=== PATIENT | female | born 1955 | race Caucasian/White ===

== ENCOUNTER 2021-10-21 09:59 | Day surgery (SDC) | payer OTHER ==
[~2021-10-21] VITALS: Ht 162.6 cm; Wt 72.6 kg
[~2021-10-21 09:59] MED LIST: ACET325 PO; IBUP600 PO; MULVITA PO; TURMERIC500 M2 PO
--- NOTE | 2021-10-21 10:46 | NUR ---
Ambulatory in Day Surgery. History, Chart, Medications and Allergies reviewed before start of procedure. Patient States Post-Procedure ride home has been arranged. Patient states colon prep results clear.
--- NOTE | 2021-10-21 12:04 | NUR ---
10/21/21 1204 Lynnette Syed HISTORY, CHART, MEDICATIONS AND ALLERGIES REVIEWED BEFORE START OF PROCEDURE. PATIENT CONFIRMS NPO STATUS AND AGREES WITH SCHEDULED PROCEDURE. 3-LEAD EKG REVIEWED WITH PHYSICIAN PRIOR TO START OF PROCEDURE. MONITOR INTACT WITH CONTINUOUS PULSE OXIMETRY,CAPNOGRAPHY, 3-LEAD EKG, INTERMITTENT BP. SUPPLEMENTAL O2 TO BE TITRATED THROUGHOUT PROCEDURE TO MAINTAIN O2 SATURATION ABOVE 90%. PATIENT DETERMINED TO BE ASA APPROPRIATE FOR PROPOFOL SEDATION PRIOR TO START OF PROCEDURE BY DR. LONG.
--- NOTE | 2021-10-21 13:32 | NUR ---
Discharge instructions reviewed with patient. Patient verbalizes understanding. Copy given to patient to take home. Discharged via wheelchair to private car for ride home.
== END 2021-10-21 13:20 | disposition home or self-care (01) ==
LOC: ORSCMMR 09:59 → ORSCSDS 11:00 → ORD 11:00 → ORSCMMR 13:20
PROVIDERS: Internal Medicine Gastroenterology
PROC: 0DBL8ZX Excision of Transverse Colon, Via Natural or Artificial Opening Endoscopic, Diagnostic (ICD-10-PCS; principal; 2021-10-21 11:00)
PROC: 0DJD8ZZ Inspection of Lower Intestinal Tract, Via Natural or Artificial Opening Endoscopic (ICD-10-PCS; principal; 2021-10-21 11:00)
DX: Z85.048 Personal history of other malignant neoplasm of rectum, rectosigmoid junction, and anus (principal); Z86.010 Personal history of colon polyps; D12.6 Benign neoplasm of colon, unspecified; D12.3 Benign neoplasm of transverse colon; Z80.0 Family history of malignant neoplasm of digestive organs; K63.89 Other specified diseases of intestine
CPT/HCPCS: 88305; J2704